=== PATIENT | female | born 1955 | race Caucasian/White ===

== ENCOUNTER 2017-03-21 13:19 | Outpatient (CLI) | payer BC ==
--- NOTE | 2017-03-21 14:37 | MMO ---
BILATERAL SCREENING MAMMOGRAM: HISTORY: A 61-year-old female for screening mammography. COMPARISON: 03/21/16, 02/17/15, 08/12/09. FINDINGS: Bilateral MLO and CC views of the breasts show scattered fibroglandular breast tissue. There are sta ble asymmetries in both breasts. There is no evidence of suspicious mass, suspicious clustered micro calcifications, or area of architectural distortion. Interpretation of this mammogram was performed with the assistance of computer-aided detection. IMPRESSION: BI-RADS category 2 - benign findings. Annual screening mammography is recommended. POS: [facility]
== END 2017-03-21 13:20 | disposition home or self-care (01) ==
LOC: SCSMAMMO 13:19
PROVIDERS: ATTEND Student in an Organized Health Care Education/Training Program
DX: Z12.31 Encounter for screening mammogram for malignant neoplasm of breast (principal)
CPT/HCPCS: 77067; G0202

== ENCOUNTER 2018-04-17 11:07 | Outpatient (CLI) | payer BC | END 2018-04-17 11:08 | disposition home or self-care (01) | LOC: BICMAMMO 11:07 | PROVIDERS: ATTEND Student in an Organized Health Care Education/Training Program | DX: Z12.31 Encounter for screening mammogram for malignant neoplasm of breast (principal); Z80.3 Family history of malignant neoplasm of breast | CPT/HCPCS: 77063; 77067 ==

== ENCOUNTER 2019-05-21 10:22 | Outpatient (CLI) | payer BC ==
--- NOTE | 2019-05-21 11:40 | RAD ---
CHEST 2 VIEWS: Date: 05/21/2019 HISTORY: Endometrial hyperplasia. COMPARISON: None. FINDINGS: Lungs are clear. No pneumothorax or effusion. Cardiac silhouette and mediastinal contours are within normal limits. No acute osseous abnormality. IMPRESSION: No acute intrathoracic abnormality. POS: [facility]
== END 2019-05-21 10:23 | disposition home or self-care (01) ==
LOC: RAD 10:22
PROVIDERS: ATTEND Student in an Organized Health Care Education/Training Program
DX: Z87.42 Personal history of other diseases of the female genital tract (principal)
CPT/HCPCS: 71046

== ENCOUNTER 2020-07-05 12:27 | Outpatient (CLI) | payer BC | END 2020-07-05 12:28 | disposition home or self-care (01) | LOC: RAD 12:27 | PROVIDERS: ATTEND Student in an Organized Health Care Education/Training Program | DX: Z87.42 Personal history of other diseases of the female genital tract (principal) | CPT/HCPCS: 71046 ==